=== PATIENT | female | born 1955 | race Caucasian/White ===

== ENCOUNTER 2025-05-06 23:47 | Inpatient (IN) | payer MEDICARE, OTHER ==
[2025-05-07 00:27] LABS: #Basophils 0.05 10x3/uL (0.0-0.2); #Eosinophils 0.07 10x3/uL (0.0-0.7); #Monocytes 0.42 10x3/uL (0.11-0.59); #Neutrophils 6.37 10x3/uL (1.40-6.50); %Basophils 0.5 % (0.0-1.0); %Eosinophils 0.8 % (0.0-10.0); %Lymphocytes 24.9 % (21.0-51.0); %Monocytes 4.5 % (0.0-10.0); %Neutrophils 68.7 % (42.0-75.0); Hematocrit 42.0 % (36.0-47.0); Hemoglobin 13.2 g/dL (12.0-16.0); Mean Corpuscular Hemoglobin 28.8 pg (27.0-31.0); Mean Corpuscular Volume 91.7 fL (78.0-98.0); Platelet Count 232 10x3/uL (130-400); Red Blood Cell (RBC) Count 4.58 mill/uL (4.20-5.40); White Blood Cell (WBC) Count 9.28 10x3/uL (4.8-10.8)
[2025-05-07] MEDS ORDERED: Bacitracin 1 PK ONE (00:27)
[2025-05-07] MEDS ORDERED: Lidocaine 1% w/Epinephrine 1:100K 20 ML VIAL ONE (00:28)
[2025-05-07] MEDS ORDERED: Ondansetron PF 4 MG/2 ML Vial ONE ×2 (00:28→03:10)
[2025-05-07] MEDS ORDERED: CEFAZOLIN 2 GM VIAL ONE (00:28)
[2025-05-07] MEDS ORDERED: Boostrix 0.5 ML (Tdap) VIAL (>/=7 yrs of age) ONE (00:29)
[2025-05-07 00:37] LABS: ALT (SGPT) 52 U/L (Less than 34); AST (SGOT) 44 U/L (11-34); Albumin 4.5 g/dL (3.1-4.5); Alkaline Phosphatase 102 U/L (40-110); Anion Gap 13 mmol/L (10-20); BUN (Urea Nitrogen) 15 mg/dL (9.8-20.1); Bilirubin, Total 0.5 mg/dL (0.3-1.2); Calc. Creatinine Clearance 0 mL/min (70-130); Calcium 10.0 mg/dL (7.8-10.44); Carbon Dioxide 26 mmol/L (23-31); Chloride 104 mmol/L (98-107); Globulin 2.7 g/dL (2.4-3.5); Glucose 136 mg/dL (80-115); Magnesium 1.3 mg/dL (1.6-2.6); Potassium 3.3 mmol/L (3.5-5.1); Sodium 140 mmol/L (136-145)
[2025-05-07] MEDS ORDERED: Magnesium 2 GM/50 ML BAG (IN WATER) ONE (01:29)
[2025-05-07] MEDS ORDERED: Etomidate 40 MG (20 mL) VIAL ONE (02:09)
[2025-05-07] MEDS ORDERED: Rocuronium Bromide 10 MG/ML (10ML VIAL) ONE (02:09)
[2025-05-07] MEDS ORDERED: Tranexamic Acid 1,000 MG/10 ML VIAL ONE ×2 (02:19→02:24)
[2025-05-07] MEDS ORDERED: Glucagon 1 MG/ML KIT IM PRN (02:50)
[2025-05-07] MEDS ORDERED: Ondansetron PF 4 MG/2 ML Vial IVP PRN (02:50)
[2025-05-07] MEDS ORDERED: Dextrose 50% Abboject 50 ML SYRINGE SLOW IVP PRN (02:50)
[2025-05-07] MEDS ORDERED: fentaNYL PF 100 MCG/2 ML SYRINGE ONE (02:56)
[2025-05-07] MEDS ORDERED: Bacitracin Zinc Ointment 30 gm TUBE ONE (03:17)
[2025-05-07] MEDS ORDERED: Ventilator Sedation Protocol 1 EACH FS SCH (03:45)
[2025-05-07] MEDS ORDERED: DISCONTINUE PREVIOUS NARCOTIC PAIN MEDICATIONS AND BENZODIAZEPINES FS SCH (03:45)
[2025-05-07] MEDS ORDERED: Propofol BOLUS 1,000 MG/100 ML VIAL IV PRN (03:45)
[2025-05-07] MEDS ORDERED: Fentanyl BOLUS 100 ML IVPB PRN (03:45)
[2025-05-07] MEDS ORDERED: Electrolyte Replacement Protocol 1 EACH FS PRN (04:00)
[2025-05-07] MEDS: hydrALAZINE 20 MG/ML VIAL SLOW IVP PRN (04:09)
[2025-05-07 04:10] LABS: Actual Bicarbonate (HCO3a) 20.0 mEq/L (22-28); Base Excess (BEa) -4.7 mEq/L (-2.0 to +3.0); CO2 Tension 35.8 mmHg (35.0-45.0); Calcium, Ionized (arterial) 1.17 mmol/L (1.12-1.30); Hematocrit-ABG 38 % (36.0-47.0); Hemoglobin (Hb) 13.0 g/dL (12.0-16.0); O2 Tension (PaO2), arterial 91.6 mmHg (> 80.0); Potassium - ABG Lab 3.37 mmol/L (3.70-5.30); pH, Arterial 7.364 (7.35-7.45)
[2025-05-07 04:14] LABS: Puncture Site Right Radial artery
[2025-05-07 04:15] LABS: #Basophils 0.03 10x3/uL (0.0-0.2); #Eosinophils Less than 0.03 10x3/uL (0.0-0.7); #Monocytes 0.50 10x3/uL (0.11-0.59); #Neutrophils 6.91 10x3/uL (1.40-6.50); %Basophils 0.3 % (0.0-1.0); %Eosinophils 0.2 % (0.0-10.0); %Lymphocytes 18.0 % (21.0-51.0); %Monocytes 5.5 % (0.0-10.0); %Neutrophils 75.6 % (42.0-75.0); Hematocrit 38.4 % (36.0-47.0); Hemoglobin 12.5 g/dL (12.0-16.0); Mean Corpuscular Hemoglobin 29.8 pg (27.0-31.0); Mean Corpuscular Volume 91.4 fL (78.0-98.0); Platelet Count 189 10x3/uL (130-400); Red Blood Cell (RBC) Count 4.20 mill/uL (4.20-5.40); White Blood Cell (WBC) Count 9.15 10x3/uL (4.8-10.8)
[2025-05-07 04:15] LABS: ALV-art Gradient 148.850 mmHg (0-20)
[2025-05-07 04:32] LABS: Anion Gap 17 mmol/L (10-20); BUN (Urea Nitrogen) 13 mg/dL (9.8-20.1); Calc. Creatinine Clearance 0 mL/min (70-130); Calcium 9.1 mg/dL (7.8-10.44); Carbon Dioxide 21 mmol/L (23-31); Chloride 107 mmol/L (98-107); Glucose 135 mg/dL (80-115); Potassium 3.5 mmol/L (3.5-5.1); Sodium 141 mmol/L (136-145)
[2025-05-07 04:33] LABS: INR-International Normal Ratio 1.1; PTT 29.4 sec (22.9-36.1); Prothrombin Time 13.9 sec (12.0-14.7)
[2025-05-07] MEDS: Magnesium 2 GM/50 ML(in water) 2 GM in Premix 1 BAG IVPB SCH (06:19)
[2025-05-07] MEDS: Potassium Chloride 20 MEQ in Premix 1 BAG IVPB SCH (06:19)
[2025-05-07] MEDS: Pantoprazole 40 MG VIAL IVP SCH (08:05)
[2025-05-07] MEDS: Dexamethasone 10 MG/ML VIAL SLOW IVP SCH (09:07)
[2025-05-07] MEDS ORDERED: Iopamidol-370 76% 500 ML MDV (1 ML CHARGE) ONE (11:02)
[2025-05-07 13:49] LABS: Potassium 4.5 mmol/L (3.5-5.1)
[2025-05-07] MEDS: DC Sedation Protocol FS ONE (19:10)
[2025-05-07] MEDS: Enoxaparin 40 MG (0.4 mL) SYRINGE SC SCH (20:46)
[2025-05-08 06:38] VITALS: BMI 27.1
[2025-05-08 08:02] LABS: #Basophils Less than 0.03 10x3/uL (0.0-0.2); #Eosinophils Less than 0.03 10x3/uL (0.0-0.7); #Monocytes 0.46 10x3/uL (0.11-0.59); #Neutrophils 6.18 10x3/uL (1.40-6.50); %Basophils 0.1 % (0.0-1.0); %Eosinophils 0.1 % (0.0-10.0); %Lymphocytes 18.2 % (21.0-51.0); %Monocytes 5.6 % (0.0-10.0); %Neutrophils 75.8 % (42.0-75.0); Hematocrit 34.4 % (36.0-47.0); Hemoglobin 10.8 g/dL (12.0-16.0); Mean Corpuscular Hemoglobin 29.5 pg (27.0-31.0); Mean Corpuscular Volume 94.0 fL (78.0-98.0); Platelet Count 211 10x3/uL (130-400); Red Blood Cell (RBC) Count 3.66 mill/uL (4.20-5.40); White Blood Cell (WBC) Count 8.17 10x3/uL (4.8-10.8)
[2025-05-08] MEDS: Metoprolol Tartrate 5 MG (5 mL) VIAL IVP SCH ×2 (08:08→15:50)
[2025-05-08 08:17] LABS: Anion Gap 15 mmol/L (10-20); BUN (Urea Nitrogen) 5 mg/dL (9.8-20.1); Calc. Creatinine Clearance 107 mL/min (70-130); Calcium 8.4 mg/dL (7.8-10.44); Carbon Dioxide 25 mmol/L (23-31); Chloride 110 mmol/L (98-107); Glucose 115 mg/dL (80-115); Potassium 3.7 mmol/L (3.5-5.1); Sodium 146 mmol/L (136-145)
[2025-05-08 09:49] VITALS: BMI 27.1
[2025-05-08] MEDS ORDERED: Magnesium Sulfate/D5W 1 GM/100 ML BAG IVPB SCH (15:15)
[2025-05-08] MEDS: Magnesium Sulfate/D5W 1 GM in Premix 1 BAG IVPB SCH (15:47)
[2025-05-08 15:48] LABS: Magnesium 2.1 mg/dL (1.6-2.6)
[2025-05-08] MEDS: Digoxin 0.5 MG/2 ML AMP SLOW IVP SCH (15:56)
[2025-05-09] MEDS: hydrALAZINE 20 MG/ML VIAL SLOW IVP SCH (02:15)
[2025-05-09] MEDS ORDERED: hydrALAZINE 20 MG/ML VIAL SLOW IVP SCH (03:00)
[2025-05-09 07:03] LABS: #Basophils 0.03 10x3/uL (0.0-0.2); #Eosinophils 0.05 10x3/uL (0.0-0.7); #Monocytes 0.52 10x3/uL (0.11-0.59); #Neutrophils 5.91 10x3/uL (1.40-6.50); %Basophils 0.3 % (0.0-1.0); %Eosinophils 0.6 % (0.0-10.0); %Lymphocytes 27.4 % (21.0-51.0); %Monocytes 5.8 % (0.0-10.0); %Neutrophils 65.3 % (42.0-75.0); Hematocrit 34.7 % (36.0-47.0); Hemoglobin 11.1 g/dL (12.0-16.0); Mean Corpuscular Hemoglobin 29.8 pg (27.0-31.0); Mean Corpuscular Volume 93.0 fL (78.0-98.0); Platelet Count 214 10x3/uL (130-400); Red Blood Cell (RBC) Count 3.73 mill/uL (4.20-5.40); White Blood Cell (WBC) Count 9.04 10x3/uL (4.8-10.8)
[2025-05-09 07:20] LABS: Anion Gap 13 mmol/L (10-20); BUN (Urea Nitrogen) 6 mg/dL (9.8-20.1); Calc. Creatinine Clearance 116 mL/min (70-130); Calcium 8.6 mg/dL (7.8-10.44); Carbon Dioxide 26 mmol/L (23-31); Chloride 108 mmol/L (98-107); Glucose 114 mg/dL (80-115); Potassium 3.5 mmol/L (3.5-5.1); Sodium 143 mmol/L (136-145)
[2025-05-09] MEDS: Potassium Chloride 20 MEQ in Premix 1 BAG IVPB SCH (08:36)
[2025-05-09] MEDS: Acetaminophen 325 MG TAB PO PRN (08:40)
[2025-05-09 23:54] VITALS: BP 197/89
[2025-05-10 03:03] LABS: #Basophils 0.04 10x3/uL (0.0-0.2); #Eosinophils 0.16 10x3/uL (0.0-0.7); #Monocytes 0.38 10x3/uL (0.11-0.59); #Neutrophils 3.63 10x3/uL (1.40-6.50); %Basophils 0.6 % (0.0-1.0); %Eosinophils 2.3 % (0.0-10.0); %Lymphocytes 39.2 % (21.0-51.0); %Monocytes 5.5 % (0.0-10.0); %Neutrophils 52.0 % (42.0-75.0); Hematocrit 34.4 % (36.0-47.0); Hemoglobin 10.8 g/dL (12.0-16.0); Mean Corpuscular Hemoglobin 29.1 pg (27.0-31.0); Mean Corpuscular Volume 92.7 fL (78.0-98.0); Platelet Count 212 10x3/uL (130-400); Red Blood Cell (RBC) Count 3.71 mill/uL (4.20-5.40); White Blood Cell (WBC) Count 6.97 10x3/uL (4.8-10.8)
[2025-05-10 03:56] LABS: Anion Gap 16 mmol/L (10-20); BUN (Urea Nitrogen) 9 mg/dL (9.8-20.1); Calc. Creatinine Clearance 109 mL/min (70-130); Calcium 9.1 mg/dL (7.8-10.44); Carbon Dioxide 25 mmol/L (23-31); Chloride 106 mmol/L (98-107); Glucose 114 mg/dL (80-115); Potassium 3.9 mmol/L (3.5-5.1); Sodium 143 mmol/L (136-145)
[2025-05-10 10:33] VITALS: TEMP 98.6
== END 2025-05-10 11:18 | disposition home or self-care (01) | DRG 579 ==
LOC: ERS 23:47 → SDC 05-07 02:48 → CCU 05-07 02:50
PROVIDERS: ADMIT Surgery; ATTEND Surgery
PROC: 0JQ50ZZ Repair Left Neck Subcutaneous Tissue and Fascia, Open Approach (ICD-10-PCS; principal; 2025-05-07)
PROC: 4A033R1 Measurement of Arterial Saturation, Peripheral, Percutaneous Approach (ICD-10-PCS; 2025-05-07)
PROC: 5A1935Z Respiratory Ventilation, Less than 24 Consecutive Hours (ICD-10-PCS; 2025-05-07)
PROC: 3E03329 Introduction of Other Anti-infective into Peripheral Vein, Percutaneous Approach (ICD-10-PCS; 2025-05-07)
PROC: 3E0234Z Introduction of Serum, Toxoid and Vaccine into Muscle, Percutaneous Approach (ICD-10-PCS; 2025-05-07)
DX: S01.412A Laceration without foreign body of left cheek and temporomandibular area, initial encounter (principal); J96.00 Acute respiratory failure, unspecified whether with hypoxia or hypercapnia; I47.10 Supraventricular tachycardia, unspecified; S11.91XA Laceration without foreign body of unspecified part of neck, initial encounter; W19.XXXA Unspecified fall, initial encounter; Z88.8 Allergy status to other drugs, medicaments and biological substances; E87.6 Hypokalemia; Z79.899 Other long term (current) drug therapy
CPT/HCPCS: 31500; 36415; 36600; 70450; 70491; 71045; 74018; 80048; 80053; 82805; 83735; 84484; 85025; 85610; 85730; 86850; 86900; 86901; 90715; 93005; 93010; 93306; 94002; 96365; 96367; 96375; J0360; J1100; J1160; J1650; J2250; J2270; J2405; J2470; J2704; J3010; J3475; J3480; J7030; J7120; Q9967